=== PATIENT | male | born 1975 | race Caucasian/White ===

== ENCOUNTER 2021-07-03 15:33 | Emergency (ER) | payer OTHER ==
[~2021-07-03] VITALS: Ht 172.7 cm; Wt 83.6 kg
[~2021-07-03 15:33] MED LIST: CHOL500016 PO; DOCU-109 PO; ONDA4TAB10 SL; OXYC1TAB15 PO
--- NOTE | 2021-07-03 15:34 | NUR ---
Wound evaluated and gauze applied to left thumb/hand then wrapped with Koban. Shelbie HOLT notified of what this tech observed and the dressing applied.
[2021-07-03 17:48] VITALS: BP 135/83
[2021-07-03] MEDS ORDERED: DIPH,PERTUSS(ACELL),TET VAC/PF 0.5 ML SYRINGE. VAX IM ONE (18:15)
[2021-07-03] MEDS ORDERED: LIDOCAINE 2% Multi-Dose 20 ML VIAL. IJ ONE (18:15)
--- NOTE | 2021-07-03 18:46 | RAD ---
EXAMINATION: Left/thumb radiograph. VIEWS: Single view of the left hand and 2 coned-down views of the left first finger COMPARISON: None INDICATION:45 years, Male, thumb laceration rule out foreign body. FINDINGS: No acute fracture, dislocation or subluxation. There is soft tissue swelling/laceration of the volar aspect of the thumb with no radiopaque soft tissue foreign body. IMPRESSION: Thumb laceration without radiographic evidence of retained foreign body. No acute osseous process. Electronically signed by: Jose Snell DO (07/03/2021 6:43 PM) [facility]
--- NOTE | 2021-07-03 19:04 | PHYS DOC ---
Past Medical History Past Surgical History: Other Additional Past Surgical Histo: LABREM SURG Smoking Status: Never Smoker Alcohol Use: Occasionally General Adult EDM: Chief Complaint: LACERATION/AVULSION HPI: HPI: Patient is a 45 year old male presents to the emergency room concerning laceration of the left thumb. Patient reports he was cutting some rubber tubing when his knife slipped lacerating his left thumb. Patient reports event happened just prior to arrival to the emergency department, did not take any pain medications for discomfort, reports wrapping a tight bandage to control bleeding and came to the emergency department for laceration repair. Patient denies numbness or tingling to his left thumb, denies loss of movement to his left thumb, reports his last tetanus immunization was greater than 5 years ago. Patient denies other physical complaints or physical concerns. Review of Systems: Review of Systems: 14 body systems of review of systems have been reviewed. See HPI for pertinent positives and negative responses, otherwise all other systems are negative, nonpertinent or noncontributory. Constitutional: Negative except as outlined in HPI above. Skin: Negative except as outlined in HPI above. Eyes: Negative except as outlined in HPI above. HENT: Negative except as outlined in HPI above. Respiratory: Negative except as outlined in HPI above. Cardiovascular: Negative except as outlined in HPI above. GI: Negative except as outlined in HPI above. : Negative except as outlined in HPI above. Musculoskeletal: Negative except as outlined in HPI above. Integument: Negative except as outlined in HPI above. Neurologic: Negative except as outlined in HPI above. Endocrine: Negative except as outlined in HPI above. Lymphatic: Negative except as outlined in HPI above. Psychiatric: Negative except as outlined in HPI above. Heart Score: C/O Chest Pain: No Risk Factors: Risk Factors: DM, Current or recent (<one month) smoker, HTN, HLP, family history of CAD, obesity. Risk Scores: Score 0 - 3: 2.5% MACE over next 6 weeks - Discharge Home Score 4 - 6: 20.3% MACE over next 6 weeks - Admit for Clinical Observation Score 7 - 10: 72.7% MACE over next 6 weeks - Early Invasive Strategies Current Medications: Current Medications Medications (Trade) Dose Ordered Sig/Van Start Time Stop Time Status Last Admin Dose Admin Diphtheria/ Tetanus/Acell Pertussis (ADACEL TDap SYRINGE) 0.5 ml ONCE ONCE 07/03/21 18:15 07/03/21 18:20 DC 07/03/21 18:38 0.5 ML Lidocaine HCl (Lidocaine 2% 20ml Vial) 20 ml 1X ONCE 07/03/21 18:15 07/03/21 18:20 DC 07/03/21 18:37 20 ML Allergies: Allergies: Allergies Coded Allergies Type Severity Reaction Last Updated Verified No Known Drug Allergies 09/21/15 No Physical Exam: PE: Constitutional: Well developed, well nourished, no acute distress, non-toxic appearance. 45-year-old male holding a bandage on his left thumb, otherwise in no apparent distress. HENT: Normocephalic, atraumatic. Eyes: Conjunctiva normal, no discharge. Neck: Normal range of motion, no stridor. Cardiovascular: No cyanosis appreciated, distal cap refill less than 2 seconds. Lungs & Thorax: Patient is in no respiratory distress, no audible adventitious lung sounds appreciated. Abdomen: Nontender, no abnormalities noted. Skin: Warm, dry, no erythema, no rash. See extremity note for focused skin examination. Back: No tenderness, no deformities. Extremities: No tenderness, no cyanosis, no clubbing, ROM intact, no edema. E xcept for left thumb, patient has 4 cm linear laceration along palmar aspect left thumb, partial skin thickness, no bleeding appreciated, full passive and active range of motion of left thumb joints, distal cap refill is less than 2 seconds, no loss of sensation distally or around the laceration. Neurologic: Alert and oriented X 3, normal motor function, normal sensory function, no focal deficits noted. Psychologic: Affect normal, judgement normal, mood normal. Current Patient Data: Vital Signs: Vital Signs Date Time Temp Pulse Resp B/P (MAP) Pulse Ox O2 Delivery O2 Flow Rate FiO2 07/03/21 17:48 98.2 70 16 135/83 (100) 98 Room Air 98.2 EKG: EKG: [] Radiology/Procedures: Radiology/Procedures: PATIENT: ABELINO WARE ACCOUNT: [id number] : 1975 LOCATION: ER AGE: 45 SEX: M EXAM STATUS: REG ER ORD. PHYSICIAN: JEMAL MORFIN APRN REASON: Thumb laceration rule out foreign body PROCEDURE: FINGER(S) LEFT EXAMINATION: Left/thumb radiograph. VIEWS: Single view of the left hand and 2 coned-down views of the left first finger COMPARISON: None INDICATION:45 years, Male, thumb laceration rule out foreign body. FINDINGS: No acute fracture, dislocation or subluxation. There is soft tissue swelling/laceration of the volar aspect of the thumb with no radiopaque soft tissue foreign body. IMPRESSION: Thumb laceration without radiographic evidence of retained foreign body. No acute osseous process. Electronically signed by: Jose Snell DO (07/03/2021 6:43 PM) [facility] Course & Med Decision Making: Course & Med Decision Making Pertinent Labs and Imaging studies reviewed. (See chart for details) 45-year-old male, vital signs reviewed, presents emerged for concerning laceration of left thumb while cutting some rubber tubing just prior to arrival. Physical examination is consistent with patient's explanation of events. Patient did place homemade bandage over thumb to apply pressure to control bleeding prior to arrival, will order x-ray of left thumb to rule out foreign body. Very low suspicion of tendon involvement as patient has full range of motion of thumb joints, no loss of sensation around her distal to laceration. The nail is not involved. The patient tetanus immunization was greater than 5 years ago, will bring up-to-date today in the emergency department with Adacel/Tdap. Reviewed and discussed at length laceration/suture repair care at home, signs and symptoms of infectious process, sutures out in 7 to 10 days, strict return to ER precautions and concerns. Patient gave verbal understanding of and is amenable to ED discharge planning. Discussed with the patient all findings and diagnostic testing as well as the need to follow-up with their primary care provider for further evaluation and treatment or return to the ED if any new or worsening symptoms. Strict return precautions were also discussed at length, the patient voiced understanding and agreement with the discharge planning. The patient was nontoxic in appearance, in no apparent distress, and hemodynamically stable at the time of disposition. Dragon Disclaimer: Dragon Disclaimer: This electronic medical record was generated, in whole or in part, using a voice recognition dictation system. Laceration Repair Lac Repair Indication: Laceration of left thumb Time: 1899 Confirmed: Patient, procedure, side, and site correct. Consent: Patient, has given verbal consent. Description/repair Procedure: The patient was placed in the appropriate position and anesthesia around the laceration was achieved with digital block procedure using 6 cc 2% lidocaine without epinephrine. The area was then vigorously scrubbed with Betadine scrub brush. The laceration was vigorously irrigated with 250 cc of normal saline. The laceration was explored for foreign bodies, there were no visualized foreign bodies present, the laceration was then repaired with 9 interrupted sutures using 4-0 nylon. The wound area was then dressed with bacitracin and bandaged by ED nursing staff. Complexity: Single layer. Post procedure exam: Circulation, motor, sensory examination intact, bleeding controlled. Total repaired wound length: 4 cm. Other Items: Patient remains neurovascular intact after laceration repair The patient tolerated the procedure well. Complications: There were no complications, the nailbed was not involved. Performed by: Jemal Reid, [employer]-C Supervision: Dr. Forde was present for consult regarding the critical aspects of the procedure including closure and post procedure exam. Total time: 30 minutes. This included time for digital block to achieve anesthesia. Departure Departure Impression: Primary Impression: Thumb laceration Qualified Codes: S61.012A - Laceration without foreign body of left thumb without damage to nail, initial encounter Additional Impression: Need for DTaP vaccine Disposition: 01 HOME / SELF CARE / HOMELESS Condition: GOOD Referrals: JACQUELINE ZUÑIGA MD (PCP) Patient Instructions: Laceration Care, Adult Additional Instructions: You were seen today in the emergency department for laceration to your left thumb. There are 9 nylon sutures that require removal in 7 to 10 days. These are not dissolvable sutures. As we discussed, keep clean and dry, daily clean sing with mild soap and water 2-3 times a day with application of antibiotic ointment and cover with Band-Aid or bandage until sutures are removed. I have written you a work excuse for the next 48 hours. Do not remove your bandage for the next 48 hours, afterwards you may remove, start your daily wound care and ointment application. An x-ray was performed today, there were no signs of bony injury or foreign bodies within the laceration area. Please follow-up with your primary care physician for suture removal as we discussed watch for signs and symptoms of infection. Return immediately to the emergency department for pain not relieved by [id number] Tylenol and or Motrin, numbness or tingling or loss of sensation of the thumb or other concerns. Thank you for visiting our Emergency Department. It was a pleasure taking care of you today in the emergency department and we appreciate you trusting us with your care. If any additional problems come up don't hesitate to return to visit us. Please follow up with your primary care provider so they can plan additional care if needed and know about the problem that you had. If symptoms worsen come back to the Emergency Department. Any concerning symptoms that start such as chest pain, shortness of air, weakness or numbness on one side of the body, running high fevers or any other concerning symptoms return to the ER. Your tetanus immunization was brought up to date today in the emergency department with a medication called Adacel/Tdap. Please update your imm unization records accordingly EMERGENCY DEPARTMENT GENERAL DISCHARGE INSTRUCTIONS Thank you for coming to [facility] Emergency Department (ED) today and trusting us with you care. We trust that you had a positive experience in our Emergency Department. If you wish to speak to the department management, you may call the Director at [phone]. YOUR FOLLOW UP INSTRUCTIONS ARE FOLLOWS: 1. Do you have a private Doctor? If you do not have a private doctor, please ask for a resource list of physicians or clinics that may be able to assist you with follow up care. 2. The Emergency Physicain has interpreted your x-rays. The X-Ray specialist will also review them. If there is a change in the findings, you will be notified in 48 hours when at all possible. 3. A lab test or culture has been done, your results will be reviewed and you will be notified if you need a change in treatment. ADDITIONAL INSTRUCTIONS AND INFORMATION: 1. Your care today has been supervised by a physician who is specially trained in emergency care. Many problems require more than one evaluation for a complete diagnosis and treatment. We recommend that you schedule your follow up appointment as recommended to ensure complete treatment of you illness or injury. If you are unable to obtain follow up care and continue to have a problem, or if your condition worsens, we recommend that you return to the ED. 2. We are not able to safely determine your condition over the phone nor are we able to give sound medical advice over the phone. For these safety reasons, if you call for medical advice we will ask you to come to the ED for further evaluation. 3. If you have any questions regarding these discharge instructions please call the ED at [phone]. SAFETY INFORMATION: In the interest of safety, wellness, and injury prevention; we encourage you to wear your sealbelt, if you smoke; quite smoking, and we encourage family to use a protective helmet for bicycling and other sporting events that present an increased risk for head injury. IF YOUR SYMPTOMS WORSEN OR NEW SYMPTOMS DEVELOP, OR YOU HAVE CONCERNS ABOUT YOUR CONDITION; OR IF YOUR CONDITION WORSENS WHILE YOU ARE WAITING FOR YOUR FOLLOW UP APPOINTMENT; EITHER CONTACT YOUR PRIMARY CARE DOCTOR, THE PHYSICIAN WHOSE NAME AND NUMBER YOU WERE GIVEN, OR RETURN TO THE ED IMMEDIATELY. JEMAL MORFIN APRN Jul 03, 2021 19:04
[2021-07-03] MEDS ORDERED: BACITRACIN TOPICAL OINT PACKET. TP ONE (20:00)
== END 2021-07-03 20:00 | disposition home or self-care (01) ==
LOC: ER 15:33
DX: S61.012A Laceration without foreign body of left thumb without damage to nail, initial encounter (principal); W26.0XXA Contact with knife, initial encounter; Y93.89 Activity, other specified; Y92.89 Other specified places as the place of occurrence of the external cause; Y99.8 Other external cause status
CPT/HCPCS: 12002; 73140; 90471; 90715; 99283